=== PATIENT | male | born 1970 | race Caucasian/White ===

== ENCOUNTER 2021-02-13 14:56 | Inpatient (IN) | payer BC, OTHER ==
[~2021-02-13] VITALS: Ht 182.9 cm; Wt 108.0 kg
--- NOTE | 2021-02-13 15:24 | NUR ---
amiodarone 200mg metoprolol 25mg farxiga 10mg valsatan 80mg eloquis 5mg bid lasix 12.5mg b1 100mg
[2021-02-13 16:45] LABS: BASOPHILS % (AUTO) 1 % (0-1); EOSINOPHILS % (AUTO) 1 % (1-7); LYMPHOCYTES % (AUTO) 7 % (22-44); MEAN CORPUSCULAR HEMOGLOBIN 32.9 pg (27.5-34.5); MEAN PLATELET VOLUME 7.4 fL (7.4-10.4); MONOCYTES % (AUTO) 10 % (2-9); NEUTROPHILS % (AUTO) 81 % (42-75); PLATELET COUNT 118 x10^3/uL (130-400)
[2021-02-13 16:46] LABS: ALANINE AMINOTRANSFERASE 33 U/L (12-78); ANION GAP 8 mmol/L (5-15); CALCIUM 8.4 mg/dL (8.5-10.1); CHLORIDE 102 mmol/L (98-107); CREATININE 1.03 mg/dL (0.7-1.3)
[2021-02-13 16:48] LABS: ALKALINE PHOSPHATASE 101 U/L (45-117); BILIRUBIN,TOTAL 0.6 mg/dL (0.2-1.0); TOTAL PROTEIN 7.1 g/dL (6.4-8.2)
[2021-02-13] MEDS ORDERED: [UNRECOGNIZED DRUG - OTHER] IV ONE (17:00)
[2021-02-13] MEDS ORDERED: HUM PROTHROMBIN CPLX IV ONE (17:00)
[2021-02-13] MEDS ORDERED: LEVETIRACETAM 500 MG in SODIUM CHLORIDE 0.9% 100 ML IV ONE (17:00)
--- NOTE | 2021-02-13 17:13 | NUR ---
Kcentra infusing per pharmacist direction/dr andino orders. Pt VSS, HOB 30*, pt is asking some repetitive questions. Keppra being sent from pharmacy, one delievered med won't advance to IVF bag. at bedside, will continue to monitor.
--- NOTE | 2021-02-13 17:23 | NUR ---
Covid swab walked to lab. VSS, HOB 30*.
[2021-02-13] MEDS ORDERED: ENALAPRILAT 1.25 MG/ML, 2ML IVPush PRN (17:30)
[2021-02-13] MEDS ORDERED: POTASSIUM CHLORIDE 20 MEQ, MAGNESIUM SULFATE 1 GM, THIAMINE 200 MG, FOLIC ACID 1 MG, MV... IV SCH (17:30)
[2021-02-13] MEDS ORDERED: morphine SULFATE 10 MG/ML, 1ML IVPush PRN (17:30)
[2021-02-13] MEDS ORDERED: ONDANSETRON 2MG/ML, 2ML IVPush PRN ×2 (17:30→19:30)
[2021-02-13] MEDS ORDERED: LORazepam 2 MG/ML, 1ML IVPush PRN (17:30)
[2021-02-13] MEDS ORDERED: POLYETHYLENE GLYCOL 17 GM PACKET PO PRN (17:30)
[2021-02-13] MEDS ORDERED: ACETAMINOPHEN 325 MG TABLET PO PRN ×3 (17:30→23:00)
[2021-02-13] MEDS ORDERED: LABETALOL 5MG/ML, 20ML IVPush PRN (17:30)
[2021-02-13] MEDS ORDERED: SODIUM CHLORIDE FLUSH 10ML SYR IVF ONE (17:30)
[2021-02-13] MEDS ORDERED: LEVETIRACETAM 500 MG in SODIUM CHLORIDE 0.9% 100 ML IV SCH (17:30)
[2021-02-13] MEDS ORDERED: BISACODYL 10 MG SUPP PR PRN (17:30)
[2021-02-13] MEDS ORDERED: OXYcodone IR 5MG TABLET PO PRN (17:30)
--- NOTE | 2021-02-13 17:34 | NUR ---
Neuro checks: Pt remains a/ox4, GCS 15, asking some repetitive quetions, PERRL. HOB 30, keppra infusing. Waiting for ICU bed and neurosurg consult. Will continue frequent neuro checks.
--- NOTE | 2021-02-13 18:28 | NUR ---
Pt remains awake but reports hes started to become sleepy, she is keeping him awake. 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 Still with some repetitive questions.
[2021-02-13] MEDS ORDERED: BUPIVACAINE/PF 0.5% ONE (19:06)
[2021-02-13] MEDS ORDERED: VANCOMYCIN 1,000 MG ONE (19:06)
[2021-02-13] MEDS ORDERED: GENTAMICIN 80 MG/2 ML ONE (19:06)
[2021-02-13] MEDS ORDERED: EPINEPHRINE 1 MG/ML, 1ML ONE ×2 (19:06→20:28)
[2021-02-13] MEDS ORDERED: THROMBIN 20,000 UNIT VIAL TP ONE ×2 (19:06→20:49)
--- NOTE | 2021-02-13 19:09 | NUR ---
Report to RUTH Hagan
--- NOTE | 2021-02-13 19:09 | NUR ---
RECIEVED REPORT FROM ISIDORO MIRANDA. ISIDORO GAVE REPORT TO OR NURSE BEFORE SHE CLOCKED OUT. PT A&OX4, SPEECH CLEAR, PERRLA WITH SLUGGISH RESPONSE, STRENGTH STRONG. PT DOES SEEM A LITTLE AGGRESSIVE WHICH PREVIOUS NURSE STATED IS NOT NORMAL FOR PT VSS. NADN. WCTM AWAITING TRANSFER TO OR
[2021-02-13] MEDS ORDERED: FENTANYL PF 250 MCG/5ML ONE (19:24)
[2021-02-13] MEDS ORDERED: hydrALAzine 20 MG/ML, 1ML IV PRN (19:30)
[2021-02-13] MEDS ORDERED: FENTANYL PF 100 MCG/2ML IV PRN (19:30)
[2021-02-13] MEDS ORDERED: PROMETHAZINE 25 MG/ML, 1ML IVPush PRN (19:30)
[2021-02-13] MEDS ORDERED: HYDROmorphone 1 MG/ML, 1ML INJ IVPush PRN (19:30)
[2021-02-13] MEDS ORDERED: LABETALOL 5MG/ML, 20ML IV PRN ×2 (19:30→23:00)
[2021-02-13] MEDS ORDERED: OXYcodone 5 MG/5 ML ORAL.SOL UDC PO PRN (19:30)
[2021-02-13] MEDS ORDERED: EPHEDRINE 50 MG/ML, 1ML IVPush PRN (19:30)
[2021-02-13] MEDS ORDERED: MEPERIDINE/PF 25MG/0.5ML IVPush PRN (19:30)
[2021-02-13] MEDS ORDERED: PROPOFOL 10 MG/ML, 20ML ONE ×2 (19:46→21:39)
[2021-02-13] MEDS ORDERED: SUCCINYLCHOLINE 20 MG/ML, 10ML ONE (19:46)
[2021-02-13] MEDS ORDERED: CEFAZOLIN 1,000 MG ONE (19:46)
[2021-02-13] MEDS ORDERED: DEXAMETHASONE 4 MG/ML, 1ML ONE (19:46)
[2021-02-13] MEDS ORDERED: ONDANSETRON 2MG/ML, 2ML ONE (19:46)
[2021-02-13] MEDS ORDERED: ROCURONIUM 10 MG/ML,10ML ONE (19:49)
[2021-02-13] MEDS ORDERED: LIDOCAINE-MPF 2% ,5ML ONE (20:15)
[2021-02-13] MEDS ORDERED: SODIUM CHLORIDE 0.9% PF 10ML ONE (20:15)
[2021-02-13] MEDS ORDERED: LEVETIRACETAM 1,000 MG in SODIUM CHLORIDE 0.9% 100 ML IV ONE (20:30)
[2021-02-13] MEDS ORDERED: PROPOFOL 50 ML ONE (20:38)
[2021-02-13] MEDS ORDERED: PHENYLEPHRINE 10 MG/ML ONE (20:45)
[2021-02-13] MEDS ORDERED: GLYCOPYRROLATE 0.2MG/1ML, 5ML ONE (21:06)
[2021-02-13] MEDS ORDERED: NEOSTIGMINE 1 MG/ML, 10ML ONE (21:06)
[2021-02-13] MEDS ORDERED: NS + 20MEQ KCL 1,000 ML IV SCH (22:47)
[2021-02-13] MEDS ORDERED: morphine SULFATE 10 MG/ML, 1ML IV PRN (23:00)
[2021-02-13] MEDS ORDERED: ACETAMINOPHEN 650 MG SUPP PR PRN ×2 (23:00)
[2021-02-13] MEDS ORDERED: OXYcodone/APAP 5/325MG TABLET PO PRN (23:00)
[2021-02-13] MEDS: ACETAMINOPHEN 325 MG TABLET PO PRN (23:56)
[2021-02-13] MEDS: ONDANSETRON 2MG/ML, 2ML IV PRN (23:58)
[2021-02-14] MEDS ORDERED: AMIO100T4 PO ×2 (01:07→01:17)
[2021-02-14] MEDS ORDERED: DAPA10TA PO (01:17)
[2021-02-14] MEDS ORDERED: FURO-92 PO (01:17)
[2021-02-14] MEDS ORDERED: EPLE25TA4 PO (01:17)
[2021-02-14] MEDS ORDERED: METO25TA35 PO (01:17)
[2021-02-14] MEDS ORDERED: VALS80TA3 PO (01:17)
[2021-02-14] MEDS ORDERED: APIX5TAB PO (01:17)
[2021-02-14] MEDS ORDERED: THIA100T27 PO (01:17)
[2021-02-14] MEDS: CEFAZOLIN PMX 1GM/50ML 50 ML IVPB SCH ×2 (04:12→11:48)
[2021-02-14 04:50] LABS: BASOPHILS % (AUTO) 0 % (0-1); EOSINOPHILS % (AUTO) 0 % (1-7); LYMPHOCYTES % (AUTO) 2 % (22-44); MEAN CORPUSCULAR HEMOGLOBIN 33.2 pg (27.5-34.5); MEAN CORPUSCULAR HGB CONC 33.8 g/dL (33.2-36.2); MEAN PLATELET VOLUME 7.6 fL (7.4-10.4); MONOCYTES % (AUTO) 3 % (2-9); NEUTROPHILS % (AUTO) 96 % (42-75); PLATELET COUNT 102 x10^3/uL (130-400); RED BLOOD COUNT 4.04 x10^6/uL (4.38-5.82); RED CELL DISTRIBUTION WIDTH 17.2 % (9.4-14.8)
[2021-02-14 05:01] LABS: ALANINE AMINOTRANSFERASE 29 U/L (12-78); ALBUMIN 2.9 g/dL (3.4-5.0); ANION GAP 11 mmol/L (5-15); CALCIUM 8.6 mg/dL (8.5-10.1); CHLORIDE 103 mmol/L (98-107); CREATININE 0.81 mg/dL (0.7-1.3)
[2021-02-14 05:03] LABS: ALKALINE PHOSPHATASE 95 U/L (45-117); BILIRUBIN,TOTAL 0.7 mg/dL (0.2-1.0); TOTAL PROTEIN 6.7 g/dL (6.4-8.2)
[2021-02-14] MEDS ORDERED: LORazepam 2 MG/ML, 1ML IVPush PRN (07:00)
[2021-02-14] MEDS: INSULIN REGULAR 100 UNITS/ML, 3ML VIAL SQ-INSULIN SCH ×2 (07:00→11:00)
[2021-02-14] MEDS: DIAZEPAM 2 MG TABLET PO SCH ×5 (07:52→23:14)
[2021-02-14] MEDS: SENNA/DOCUSATE TABLET PO SCH (07:53)
[2021-02-14] MEDS: MAGNESIUM SULFATE 1 GM, THIAMINE 200 MG, FOLIC ACID 1 MG, MVI ADULT 10 ML in SODIUM CHL... IV SCH (07:59)
[2021-02-14] MEDS: SODIUM CHLORIDE 1 GM TABLET PO SCH ×3 (08:15→20:53)
[2021-02-14] MEDS: LEVETIRACETAM 500 MG in SODIUM CHLORIDE 0.9% 100 ML IV SCH ×2 (08:15→20:50)
[2021-02-14] MEDS: METOPROLOL TARTRATE 25 MG TAB PO SCH (08:16)
[2021-02-14] MEDS: AMIODARONE 200 MG TABLET PO SCH (08:16)
[2021-02-14] MEDS ORDERED: SENNA/DOCUSATE TABLET PO SCH (09:00)
[2021-02-14] MEDS: VALSARTAN 80 MG TABLET PO SCH (09:17)
[2021-02-14] MEDS: ACETAMINOPHEN 325 MG TABLET PO PRN (19:14)
[2021-02-15] MEDS: DIAZEPAM 2 MG TABLET PO SCH ×4 (03:04→19:32)
[2021-02-15] MEDS: ONDANSETRON 2MG/ML, 2ML IV PRN (05:17)
[2021-02-15 06:16] LABS: BASOPHILS % (AUTO) 0 % (0-1); EOSINOPHILS % (AUTO) 0 % (1-7); LYMPHOCYTES % (AUTO) 3 % (22-44); MEAN CORPUSCULAR HEMOGLOBIN 32.8 pg (27.5-34.5); MEAN CORPUSCULAR HGB CONC 32.9 g/dL (33.2-36.2); MEAN PLATELET VOLUME 8.2 fL (7.4-10.4); MONOCYTES % (AUTO) 8 % (2-9); NEUTROPHILS % (AUTO) 89 % (42-75); PLATELET COUNT 125 x10^3/uL (130-400); RED BLOOD COUNT 3.68 x10^6/uL (4.38-5.82); RED CELL DISTRIBUTION WIDTH 16.8 % (9.4-14.8)
[2021-02-15 06:27] LABS: ANION GAP 3 mmol/L (5-15); CALCIUM 8.5 mg/dL (8.5-10.1); CHLORIDE 103 mmol/L (98-107)
[2021-02-15 06:29] LABS: CREATININE 0.74 mg/dL (0.7-1.3)
[2021-02-15] MEDS: MAGNESIUM SULFATE 1 GM, THIAMINE 200 MG, FOLIC ACID 1 MG, MVI ADULT 10 ML in SODIUM CHL... IV SCH (07:35)
[2021-02-15] MEDS: VALSARTAN 80 MG TABLET PO SCH (07:36)
[2021-02-15] MEDS: METOPROLOL TARTRATE 25 MG TAB PO SCH (07:36)
[2021-02-15] MEDS: SODIUM CHLORIDE 1 GM TABLET PO SCH ×3 (07:37→19:32)
[2021-02-15] MEDS: SENNA/DOCUSATE TABLET PO SCH (07:37)
[2021-02-15] MEDS: AMIODARONE 200 MG TABLET PO SCH (07:37)
[2021-02-15] MEDS: LEVETIRACETAM 500 MG in SODIUM CHLORIDE 0.9% 100 ML IV SCH ×2 (09:18→19:21)
[2021-02-15] MEDS ORDERED: LEVETIRACETAM 1,000 MG in SODIUM CHLORIDE 0.9% 100 ML IV SCH (20:00)
[2021-02-15] MEDS ORDERED: LEVETIRACETAM 500 MG in SODIUM CHLORIDE 0.9% 100 ML IV ONE (20:30)
[2021-02-15] MEDS ORDERED: LORazepam 2 MG/ML, 1ML IVPush PRN (21:30)
[2021-02-15] MEDS ORDERED: PHENYTOIN SODIUM 1,000 MG in SODIUM CHLORIDE 0.9% 100 ML IV ONE (22:00)
[2021-02-15] MEDS ORDERED: FILTER 0.22 MICRON IV ONE (22:30)
[2021-02-16] MEDS: DIAZEPAM 2 MG TABLET PO SCH ×4 (03:09→20:42)
[2021-02-16] MEDS: ACETAMINOPHEN 325 MG TABLET PO PRN ×3 (03:14→20:42)
[2021-02-16 04:39] LABS: BASOPHILS % (AUTO) 0 % (0-1); EOSINOPHILS % (AUTO) 0 % (1-7); LYMPHOCYTES % (AUTO) 6 % (22-44); MEAN CORPUSCULAR HEMOGLOBIN 33.9 pg (27.5-34.5); MEAN CORPUSCULAR HGB CONC 34.1 g/dL (33.2-36.2); MEAN PLATELET VOLUME 7.8 fL (7.4-10.4); MONOCYTES % (AUTO) 6 % (2-9); NEUTROPHILS % (AUTO) 87 % (42-75); PLATELET COUNT 100 x10^3/uL (130-400); RED BLOOD COUNT 3.35 x10^6/uL (4.38-5.82); RED CELL DISTRIBUTION WIDTH 16.7 % (9.4-14.8)
[2021-02-16 04:51] LABS: ANION GAP 3 mmol/L (5-15); CALCIUM 8.1 mg/dL (8.5-10.1); CHLORIDE 106 mmol/L (98-107); CREATININE 0.71 mg/dL (0.7-1.3)
[2021-02-16] MEDS: MAGNESIUM SULFATE 1 GM, THIAMINE 200 MG, FOLIC ACID 1 MG, MVI ADULT 10 ML in SODIUM CHL... IV SCH (06:21)
[2021-02-16] MEDS: LEVETIRACETAM 1,000 MG in SODIUM CHLORIDE 0.9% 100 ML IV SCH ×2 (08:46→20:42)
[2021-02-16] MEDS: SENNA/DOCUSATE TABLET PO SCH (09:38)
[2021-02-16] MEDS: VALSARTAN 80 MG TABLET PO SCH (09:38)
[2021-02-16] MEDS: SODIUM CHLORIDE 1 GM TABLET PO SCH ×3 (09:38→20:43)
[2021-02-16] MEDS: METOPROLOL TARTRATE 25 MG TAB PO SCH (09:39)
[2021-02-16] MEDS: AMIODARONE 200 MG TABLET PO SCH (09:41)
[2021-02-17] MEDS: DIAZEPAM 2 MG TABLET PO SCH ×4 (02:36→20:52)
[2021-02-17 05:34] LABS: BASOPHILS % (AUTO) 0 % (0-1); EOSINOPHILS % (AUTO) 3 % (1-7); LYMPHOCYTES % (AUTO) 12 % (22-44); MEAN CORPUSCULAR HEMOGLOBIN 33.6 pg (27.5-34.5); MEAN CORPUSCULAR HGB CONC 33.9 g/dL (33.2-36.2); MEAN PLATELET VOLUME 7.5 fL (7.4-10.4); MONOCYTES % (AUTO) 15 % (2-9); NEUTROPHILS % (AUTO) 70 % (42-75); PLATELET COUNT 119 x10^3/uL (130-400); RED BLOOD COUNT 3.31 x10^6/uL (4.38-5.82); RED CELL DISTRIBUTION WIDTH 16.8 % (9.4-14.8)
[2021-02-17 05:43] LABS: CHLORIDE 104 mmol/L (98-107)
[2021-02-17 05:48] LABS: ANION GAP 4 mmol/L (5-15); CALCIUM 8.4 mg/dL (8.5-10.1)
[2021-02-17] MEDS: SENNA/DOCUSATE TABLET PO SCH (08:33)
[2021-02-17] MEDS: VALSARTAN 80 MG TABLET PO SCH (08:33)
[2021-02-17] MEDS: METOPROLOL TARTRATE 25 MG TAB PO SCH (08:33)
[2021-02-17] MEDS: SODIUM CHLORIDE 1 GM TABLET PO SCH ×3 (08:33→20:28)
[2021-02-17] MEDS: LEVETIRACETAM 500 MG TABLET PO SCH ×2 (08:33→20:28)
[2021-02-17] MEDS: AMIODARONE 200 MG TABLET PO SCH (08:33)
[2021-02-17] MEDS: MAGNESIUM SULFATE 1 GM, THIAMINE 200 MG, FOLIC ACID 1 MG, MVI ADULT 10 ML in SODIUM CHL... IV SCH (10:35)
[2021-02-17] MEDS: ACETAMINOPHEN 325 MG TABLET PO PRN (11:43)
[2021-02-17 13:27] VITALS: BP 140/91
[2021-02-17 13:55] VITALS: BP 125/81
[2021-02-17 20:00] VITALS: BP 135/88
[2021-02-18 02:00] VITALS: BP 131/84
[2021-02-18] MEDS: DIAZEPAM 2 MG TABLET PO SCH ×4 (03:43→21:07)
[2021-02-18 04:04] VITALS: BP 131/84
[2021-02-18 05:40] LABS: BASOPHILS % (AUTO) 1 % (0-1); EOSINOPHILS % (AUTO) 2 % (1-7); LYMPHOCYTES % (AUTO) 9 % (22-44); MEAN CORPUSCULAR HEMOGLOBIN 33.2 pg (27.5-34.5); MEAN CORPUSCULAR HGB CONC 34.1 g/dL (33.2-36.2); MONOCYTES % (AUTO) 16 % (2-9); NEUTROPHILS % (AUTO) 73 % (42-75); PLATELET COUNT 138 x10^3/uL (130-400); RED BLOOD COUNT 3.53 x10^6/uL (4.38-5.82); RED CELL DISTRIBUTION WIDTH 16.6 % (9.4-14.8)
[2021-02-18 06:02] LABS: ANION GAP 6 mmol/L (5-15); CHLORIDE 106 mmol/L (98-107)
[2021-02-18 06:04] LABS: CREATININE 0.58 mg/dL (0.7-1.3)
[2021-02-18 07:06] VITALS: BP 146/88
[2021-02-18] MEDS: SENNA/DOCUSATE TABLET PO SCH (09:00)
[2021-02-18] MEDS: AMIODARONE 200 MG TABLET PO SCH (10:18)
[2021-02-18] MEDS: SODIUM CHLORIDE 1 GM TABLET PO SCH ×3 (10:18→21:09)
[2021-02-18] MEDS: LEVETIRACETAM 500 MG TABLET PO SCH ×2 (10:18→21:08)
[2021-02-18] MEDS: METOPROLOL TARTRATE 25 MG TAB PO SCH (10:19)
[2021-02-18] MEDS: MAGNESIUM SULFATE 1 GM, THIAMINE 200 MG, FOLIC ACID 1 MG, MVI ADULT 10 ML in SODIUM CHL... IV SCH (10:20)
[2021-02-18] MEDS: VALSARTAN 80 MG TABLET PO SCH (11:21)
[2021-02-18 19:51] VITALS: BP 123/79
[2021-02-18] MEDS: ACETAMINOPHEN 325 MG TABLET PO PRN (21:08)
[2021-02-19 02:00] VITALS: BP 125/88
[2021-02-19] MEDS: DIAZEPAM 2 MG TABLET PO SCH ×4 (03:26→20:20)
[2021-02-19 06:17] LABS: MEAN CORPUSCULAR HGB CONC 33.6 g/dL (33.2-36.2); MEAN PLATELET VOLUME 7.1 fL (7.4-10.4); PLATELET COUNT 154 x10^3/uL (130-400); RED BLOOD COUNT 3.61 x10^6/uL (4.38-5.82); RED CELL DISTRIBUTION WIDTH 16.5 % (9.4-14.8)
[2021-02-19 06:24] LABS: CHLORIDE 106 mmol/L (98-107)
[2021-02-19 06:30] LABS: ANION GAP 3 mmol/L (5-15); CREATININE 0.67 mg/dL (0.7-1.3)
[2021-02-19 06:51] LABS: BAND#(MANUAL) 0.06 x10^3/uL; BANDS%(MANUAL) 1 % (0-7); EOS#(MANUAL) 0.17 x10^3/uL (0.0-0.4); EOS% (MANUAL) 3 % (1-7); LYMPH#(MANUAL) 0.87 x10^3/uL (1-3.4); LYMPHS% (MANUAL) 15 % (22-44); MONOS#(MANUAL) 0.93 x10^3/uL (0.3-2.7); MONOS% (MANUAL) 16 % (2-9); SEG#(MANUAL) 3.77 x10^3/uL (1.8-6.8); SEGS% (MANUAL) 65 % (42-75)
[2021-02-19 06:52] LABS: <PLATELET ESTIMATE> ADEQUATE; <PLT MORPHOLOGY> NORMAL PLT MORPH; ANISOCYTOSIS 1+
[2021-02-19 08:16] VITALS: BP 134/88
[2021-02-19] MEDS: VALSARTAN 80 MG TABLET PO SCH (08:20)
[2021-02-19] MEDS: LEVETIRACETAM 500 MG TABLET PO SCH ×2 (08:20→20:19)
[2021-02-19] MEDS: METOPROLOL TARTRATE 25 MG TAB PO SCH (08:20)
[2021-02-19] MEDS: SENNA/DOCUSATE TABLET PO SCH (08:20)
[2021-02-19] MEDS: SODIUM CHLORIDE 1 GM TABLET PO SCH ×3 (08:20→20:20)
[2021-02-19] MEDS: AMIODARONE 200 MG TABLET PO SCH (08:21)
[2021-02-19 12:58] VITALS: BP 124/71
[2021-02-19] MEDS: ACETAMINOPHEN 325 MG TABLET PO PRN ×2 (14:19→20:31)
[2021-02-19 19:15] VITALS: BP 106/67
[2021-02-20 01:45] VITALS: BP 111/73
[2021-02-20] MEDS: DIAZEPAM 2 MG TABLET PO SCH ×2 (02:41→09:41)
[2021-02-20 05:48] LABS: MEAN CORPUSCULAR HEMOGLOBIN 32.9 pg (27.5-34.5); MEAN CORPUSCULAR HGB CONC 33.6 g/dL (33.2-36.2); MEAN PLATELET VOLUME 7.1 fL (7.4-10.4); PLATELET COUNT 190 x10^3/uL (130-400); RED CELL DISTRIBUTION WIDTH 16.4 % (9.4-14.8)
[2021-02-20 05:55] LABS: CALCIUM 8.1 mg/dL (8.5-10.1); CREATININE 0.75 mg/dL (0.7-1.3)
[2021-02-20 06:07] LABS: ANION GAP 4 mmol/L (5-15); CHLORIDE 105 mmol/L (98-107)
[2021-02-20] MEDS: ACETAMINOPHEN 325 MG TABLET PO PRN (06:28)
[2021-02-20 06:57] LABS: <PLATELET ESTIMATE> ADEQUATE; <PLT MORPHOLOGY> NORMAL PLT MORPH; ANISOCYTOSIS 1+; BAND#(MANUAL) 0.08 x10^3/uL; BANDS%(MANUAL) 1 % (0-7); EOS#(MANUAL) 0.23 x10^3/uL (0.0-0.4); EOS% (MANUAL) 3 % (1-7); LYMPH#(MANUAL) 0.77 x10^3/uL (1-3.4); LYMPHS% (MANUAL) 10 % (22-44); METAMYELOCYTES# (MANUAL) 0.08 x10^3/uL (0-0); METAMYELOCYTES% (MANUAL) 1 % (0-1); MONOS#(MANUAL) 1.23 x10^3/uL (0.3-2.7); MONOS% (MANUAL) 16 % (2-9); SEG#(MANUAL) 5.31 x10^3/uL (1.8-6.8); SMUDGE CELLS 1+
[2021-02-20 06:59] LABS: SEGS% (MANUAL) 69 % (42-75)
[2021-02-20 08:16] VITALS: BP 117/78
[2021-02-20] MEDS: VALSARTAN 80 MG TABLET PO SCH (09:40)
[2021-02-20] MEDS: SENNA/DOCUSATE TABLET PO SCH (09:40)
[2021-02-20] MEDS: AMIODARONE 200 MG TABLET PO SCH (09:40)
[2021-02-20] MEDS: SODIUM CHLORIDE 1 GM TABLET PO SCH (09:40)
[2021-02-20] MEDS: METOPROLOL TARTRATE 25 MG TAB PO SCH (09:41)
[2021-02-20] MEDS: LEVETIRACETAM 500 MG TABLET PO SCH (09:41)
[2021-02-20] MEDS ORDERED: SODI1TAB PO ×3 (13:10→14:20)
[2021-02-20] MEDS ORDERED: LEVE10007 PO ×3 (13:10→14:20)
[2021-02-20] MEDS ORDERED: DIAZ2TAB3 PO ×3 (13:10→14:20)
[2021-02-20] MEDS ORDERED: DAPA10TA PO (13:10)
[2021-02-20 13:13] VITALS: BP 105/68
== END 2021-02-20 14:23 | disposition home health service (06) | DRG 25 ==
LOC: ED 16:45 → EDIP 16:51 → ED 19:11 → CCU 22:28 → 4EST 02-17 13:08
PROVIDERS: ADMIT Internal Medicine; ATTEND Internal Medicine
PROC: 00C40ZZ Extirpation of Matter from Intracranial Subdural Space, Open Approach (ICD-10-PCS; principal; 2021-02-13 19:30)
DX: S06.5X0A Traumatic subdural hemorrhage without loss of consciousness, initial encounter (principal); J69.0 Pneumonitis due to inhalation of food and vomit; E87.1 Hypo-osmolality and hyponatremia; I42.6 Alcoholic cardiomyopathy; G40.209 Localization-related (focal) (partial) symptomatic epilepsy and epileptic syndromes with complex partial seizures, not intractable, without status epilepticus; R47.01 Aphasia; Z20.822 Contact with and (suspected) exposure to COVID-19; D69.59 Other secondary thrombocytopenia; F10.220 Alcohol dependence with intoxication, uncomplicated; W18.39XA Other fall on same level, initial encounter; F12.90 Cannabis use, unspecified, uncomplicated; I48.91 Unspecified atrial fibrillation; Z79.01 Long term (current) use of anticoagulants; Z79.899 Other long term (current) drug therapy; Z87.891 Personal history of nicotine dependence; Z95.810 Presence of automatic (implantable) cardiac defibrillator; Q67.6 Pectus excavatum; Y93.89 Activity, other specified; Y92.89 Other specified places as the place of occurrence of the external cause; Y99.8 Other external cause status; Y90.9 Presence of alcohol in blood, level not specified
CPT/HCPCS: 36415; 99291; J3490; S0020; 70450; 72125; 80048; 80053; 80320; 82962; 83735; 84100; 84295; 85025; 85347; 85384; 85576; 87081; 87635; 93005; 95819; C1713; C1729; G0378; J0171; J0690; J1100; J1165; J1953; J2405; J2704; J2710; J3010; J3370; J3411; J3475; J3480; 92523-GN; C1781; C9132; G0480; J0330; J1580; J2060; J2370; J7030

== ENCOUNTER 2021-03-01 08:06 | Outpatient (CLI) | payer BC ==
[~2021-03-01 08:06] MED LIST: AMIO100T4 PO; APIX5TAB PO; DAPA10TA PO; DIAZ2TAB3 PO; EPLE25TA4 PO; FURO-92 PO; LEVE10007 PO; METO25TA35 PO; SODI1TAB PO; THIA100T27 PO; VALS80TA3 PO
== END 2021-03-01 23:59 | disposition home or self-care (01) ==
LOC: CFH 08:06
PROVIDERS: ATTEND Neurological Surgery
DX: I62.00 Nontraumatic subdural hemorrhage, unspecified (principal)
CPT/HCPCS: 70450